=== PATIENT | female | born 1950 | race Caucasian/White ===

== ENCOUNTER 2016-10-20 02:30 | Emergency (ER) | payer MEDICARE, OTHER ==
[~2016-10-20 02:30] MED LIST: ANTIBIOTIC; ASPIRIN325 MG; BL MAXEPA CAPSU1 CAP; BYSTOLIC5 MG; CALCIUM; CALCIUM 600 W/V1 TAB; CENTRUM SILVER1 TA; COUMADIN10 MG PO; COUMADIN7.5 MG PO; LEVAQUIN500 MG; METAMUCIL1 PKT; PRILOSEC; SAM-E200 M1; STOOL SOFTENER50 MG; TORADOL10 MG; UNKNOWN PAIN MED; VITAMIN D-32000 UNIT; ZANTAC150 MG; [UNRECOGNIZED DRUG - OTHER]
[2016-10-20] MEDS ORDERED: CRESTOR5 M1 PO (02:42)
[2016-10-20] MEDS ORDERED: DEXILANT60 M1 PO (02:43)
[2016-10-20] MEDS ORDERED: PREDNISONE20 M1 PO (03:58)
== END 2016-10-20 04:06 ==
LOC: EDMED 02:30
DX: I10 Essential (primary) hypertension (principal); Z90.11 Acquired absence of right breast and nipple; Z98.82 Breast implant status; Z79.899 Other long term (current) drug therapy
CPT/HCPCS: J0171; J1100

== ENCOUNTER 2016-10-22 05:48 | Observation (INO) | payer MEDICARE, OTHER ==
[~2016-10-22 05:48] MED LIST changes: +CRESTOR5 M1 PO; +DEXILANT60 M1 PO; +PREDNISONE20 M1 PO
[2016-10-22] MEDS ORDERED: BENADRYL25 M3 PO (06:01)
[2016-10-22 06:29] LABS: BASO % 0.1 % (0-2); EOS % 0.2 % (0-7); HGB-HEMOGLOBIN 14.8 gm/dl (12.0-15.5); IMMATURE GRANULOCYTES ABSOLUTE 0.03 tho/cmm (0-0.03); IMMATURE GRANULOCYTES PERCENT 0.2 % (0-0.3); LYMPH % 37.4 % (20-45); MCH (MEAN CORPUSCULAR HGB) 30.5 pg (28.0-32.0); MCHC MEAN CORPUSCULAR HGB CONC 33.6 % (32.0-36.0); MCV (MEAN CELL VOLUME) 90.5 fl (82.0-96.0); MEAN PLATELET VOLUME 9.4 cmc (9.4-12.4); MONO % 6.3 % (0-12); NEUTROPHIL ABSOLUTE COUNT 7.6 tho/cmm (1.6-8.0); NEUTROPHIL-AUTOMATED 7.6 tho/cmm (1.6-8.0); NEUTROPHILS % 55.8 % (40-80); PLATELET COUNT 299 tho/cmm (150-450); RED BLOOD COUNT 4.86 mil/cmm (4.00-5.20); RED CELL DISTRIBUTION WIDTH 13.5 % (12.4-16.4); WHITE BLOOD COUNT 13.6 tho/cmm (4.0-10.0)
[2016-10-22 06:33] LABS: LYMPH ABSOLUTE COUNT 5.1 tho/cmm (0.8-4.5); MONOCYTE ABSOLUTE COUNT 0.9 tho/cmm (0.0-1.2)
[2016-10-22 06:54] LABS: ANION GAP 13 mmol/L (0-20); BLOOD UREA NITROGEN 18 mg/dl (6-24); CALCIUM 8.4 mg/dl (8.5-10.5); CARBON DIOXIDE-VENOUS 23 mmol/L (22-32); CHLORIDE 112 mmol/l (96-110); CREATININE 0.99 mg/dl (0.50-1.10); GLUCOSE 116 mg/dL (70-110); POTASSIUM 3.5 mmol/L (3.7-5.1); SODIUM 144 mmol/L (135-145); eGFR VALUE FOR BLACK 68 mL/Min
[2016-10-22] MEDS ORDERED: DELTASONE20 MG PO (08:31)
[2016-10-23] MEDS ORDERED: BENADRYL25 M3 PO (12:36)
[2016-10-23] MEDS ORDERED: TYLENOL325 M2 PO (12:37)
[2016-10-23] MEDS ORDERED: CLARITIN10 M6 PO (12:37)
[2016-10-23] MEDS ORDERED: DELTASONE20 MG (12:39)
[2016-10-23] MEDS ORDERED: PEPCID20 M1 PO (12:39)
[2016-10-23] MEDS ORDERED: ADRENALIN1 MG/1 M3 SC (12:41)
== END 2016-10-23 13:01 ==
LOC: EDMED 05:48 → EMR2 08:35 → CAR1 15:45
PROVIDERS: Emergency Medicine; ADMIT Hospitalist
DX: T88.6XXA Anaphylactic reaction due to adverse effect of correct drug or medicament properly administered, initial encounter (principal); I10 Essential (primary) hypertension; E78.5 Hyperlipidemia, unspecified; K21.9 Gastro-esophageal reflux disease without esophagitis; Z85.3 Personal history of malignant neoplasm of breast; Z79.899 Other long term (current) drug therapy
CPT/HCPCS: G0378; J0171; J1200; J2920; J2930; J7030